=== PATIENT | female | born 1955 | race Caucasian/White ===

== ENCOUNTER 2023-06-05 13:40 | Emergency (ER) | payer BC ==
[2023-06-05 15:10] VITALS: TEMP 98.4
[2023-06-05] MEDS: SODIUM CHLORIDE 0.9% 1,000 ML IV STA (15:24)
--- NOTE | 2023-06-05 15:36 | ED ---
General Adult HPI - General Chief complaint: Extremity Problem,Nontraumatic Stated complaint: Faustino THOMAS, sent from Urgent care Time Seen by Provider: 06/05/23 13:45 Source: patient Mode of arrival: ambulatory Limitations: no limitations - History of Present Illness Initial comments: 67-year-old female presents emergency department reporting pain and redness to her left lower leg. Patient states that she has not felt well over the past week. She has had nausea vomiting and diarrhea. States that she is extremely dehydrated. Today she went to work and had a syncopal episode. She states that a coworker found her on the floor. She states that she was not out for long. Did hit her head as she has a bruise to the right side of her worship. She denies headache. No neck or back pain. No visual changes. She does not take any blood thinners. She called her primary care doctor to talk about it. They recommended that she come into the emergency department and have an ultrasound of her left lower extremity for the redness and swelling. Patient denies any fevers. No chest pain or difficulty breathing. No other alleviating, precip itating modifying factors - Related Data Home Medications Medication Instructions Recorded Confirmed No Known Home Medications 06/05/23 06/05/23 Allergies Allergy/AdvReac Type Severity Reaction Status Date / Time No Known Allergies Allergy Verified 06/05/23 16:28 Review of Systems ROS Statement: Those systems with pertinent positive or pertinent negative responses have been documented in the HPI. ROS Other: All systems not noted in ROS Statement are negative. Past Medical History Past Medical History: No Reported History History of Any Multi-Drug Resistant Organisms: None Reported Past Surgical History: No Surgical Hx Reported Past Psychological History: No Psychological Hx Reported Smoking Status: Never smoker Past Alcohol Use History: None Reported Past Drug Use History: None Reported General Exam Limitations: no limitations General appearance: alert, in no apparent distress Head exam: Present: atraumatic, normocephalic, normal inspection Eye exam: Present: normal appearance, PERRL, EOMI. Absent: scleral icterus, conjunctival injection, periorbital swelling ENT exam: Present: normal exam, mucous membranes moist Neck exam: Present: normal inspection. Absent: tenderness, meningismus, lymphadenopathy Respiratory exam: Present: normal lung sounds bilaterally. Absent: respiratory distress, wheezes, rales, rhonchi, stridor Cardiovascular Exam: Present: regular rate, normal rhythm, normal heart sounds. Absent: systolic murmur, diastolic murmur, rubs, gallop, clicks GI/Abdominal exam: Present: soft, normal bowel sounds. Absent: distended, tenderness, guarding, rebound, rigid Extremities exam: Present: tenderness (Redness, swelling to the left lower extremity. There is central purpura.), normal capillary refill. Absent: pedal edema, joint swelling, calf tenderness Back exam: Present: normal inspection Neurological exam: Present: alert, oriented X3, CN II-XII intact Psychiatric exam: Present: normal affect, normal mood Skin exam: Present: warm, dry, intact, normal color. Absent: rash Course Vital Signs 06/05/23 06/05/23 06/05/23 13:44 13:46 15:46 Temperature 98.4 F Pulse Rate 120 H 80 72 Respiratory 22 20 16 Rate Blood Pressure 119/74 146/72 O2 Sat by Pulse 99 98 95 Oximetry 06/05/23 18:36 Temperature Pulse Rate 93 Respiratory 20 Rate Blood Pressure 116/72 O2 Sat by Pulse 98 Oximetry Medical Decision Making - Medical Decision Making Was pt. sent in by a medical professional or institution (, PA, EMERGENCY ROOM REGISTERED NURSE, urgent care, hospital, or penitentiary...) When possible be specific @ -Patient sent in by primary care for ultrasound Did you speak to anyone other than the patient for history (EMS, parent, family, police, friend...)? What history was obtained from this source @ -No Did you review nursing and triage notes (agree or disagree)? Why? @ -I reviewed and agree with nursing and triage notes Were old charts reviewed (outside hosp., previous admission, EMS record, old EKG, old radiological studies, urgent care reports/EKG's, penitentiary records)? Report findings @ -No old charts were reviewed Differential Diagnosis (chest pain, altered mental status, abdominal pain women, abdominal pain men, vaginal bleeding, weakness, fever, dyspnea, syncope, headache, dizziness, GI bleed, back pain, seizure, CVA, palpatations, mental health, musculoskeletal)? @ -Cellulitis, DVT, vasculitis EKG interpreted by me (3pts min.). @ -Yes and demonstrates sinus tachycardia with a rate of 103. KS interval 174. QRS 103. QTc of 388. No acute ST segment elevations or depressions X-rays interpreted by me (1pt min.). @ -None done CT interpreted by me (1pt min.). @ -None done U/S interpreted by me (1pt. min.). @ -Yes and demonstrates no DVT What testing was considered but not performed or refused? (CT, X-rays, U/S, labs)? Why? @ -None What meds were considered but not given or refused? Why? @ -None Did you discuss the management of the patient with other professionals (professionals i.e. , PA, EMERGENCY ROOM REGISTERED NURSE, lab, RT, psych nurse, social work instructor, executive sous chef, teacher, chairman president and chief executive officer, assistant case manager)? Give summary @ -No Was smoking cessation discussed for >3mins.? @ -No Was critical care preformed (if so, how long)? @ -No Were there social determinants of health that impacted care today? How? (Homelessness, low income, unemployed, alcoholism, drug addiction, transportation, low edu. Level, literacy, decrease access to med. care, half-way, rehab)? @ -No Was there de-escalation of care discussed even if they declined (Discuss DNR or withdrawal of care, Hospice)? DNR status @ -No What co-morbidities impacted this encounter? (DM, HTN, Smoking, COPD, CAD, Cancer, CVA, ARF, Chemo, Hep., AIDS, mental health diagnosis, sleep apnea, morbid obesity)? @ -None Was patient admitted / discharged? Hospital course, mention meds given and route, prescriptions, significant lab abnormalities, going to OR and other pertinent info. @ -Upon arrival patient was seen and evaluated in [place] [address]. Thorough history and physical exam was performed. Ultrasound was performed which demonstrates no DVT. I am concerned for cellulitis therefore initiated the patient on antibiotics. She is to take them as directed. Follow-up with her doctor and return for any new or worsening symptoms. Patient agreeable plan she was discharged in stable condition Undiagnosed new problem with uncertain prognosis? @ -No Drug Therapy requiring intensive monitoring for toxicity (Heparin, Nitro, Insulin, Cardizem)? @ -No Were any procedures done? @ -No Diagnosis/symptom? @ -Acute left lower extremity erythema, acute left lower extremity cellulitis, evaluation for DVT Acute, or Chronic, or Acute on Chronic? @ -Acute Uncomplicated (without systemic symptoms) or Complicated (systemic symptoms)? @ -Complicated Side effects of treatment? @ -No Exacerbation, Progression, or Severe Exacerbation? @ -No Poses a threat to life or bodily function? How? (Chest pain, [place], [place], pneumonia, PE, COPD, DKA, ARF, appy, cholecystitis, CVA, Diverticulitis, Homicidal, Suicidal, threat to staff... and all critical care pts) @ -No - Lab Data Result diagrams: 06/05/23 15:22 06/05/23 15:22 Lab Results 06/05/23 06/05/23 06/05/23 Range/Units 15:22 15: 15: WBC 9.0 (3.8-10.6) k/uL RBC 4.67 (3.80-5.40) m/uL Hgb 14.1 (11.4-16.0) gm/dL Hct 43.8 (34.0-46.0) % MCV 93.7 (80.0-100.0) fL MCH 30.2 (25.0-35.0) pg MCHC 32.3 (31.0-37.0) g/dL RDW 13.0 (11.5-15.5) % Plt Count 179 (150-450) k/uL MPV 10.3 Neutrophils % 74 % Lymphocytes % 14 % Monocytes % 8 % Eosinophils % 1 % Basophils % 0 % Neutrophils # 6.7 (1.3-7.7) k/uL Lymphocytes # 1.3 (1.0-4.8) k/uL Monocytes # 0.7 (0-1.0) k/uL Eosinophils # 0.1 (0-0.7) k/uL Basophils # 0.0 (0-0.2) k/uL Sodium 135 L (137-145) mmol/L Potassium 3.6 (3.5-5.1) mmol/L Chloride 103 (98-107) mmol/L Carbon Dioxide 21 L (22-30) mmol/L Anion Gap 11 mmol/L BUN 18 H (7-17) mg/dL Creatinine 0.77 (0.52-1.04) mg/dL Est GFR (CKD-EPI)AfAm >90 (>60 ml/min/1.73 sqM) Est GFR (CKD-EPI)NonAf 81 (>60 ml/min/1.73 sqM) Glucose 110 H (74-99) mg/dL Calcium 9.2 (8.4-10.2) mg/dL Total Bilirubin 1.1 (0.2-1.3) mg/dL AST 32 (14-36) U/L ALT 30 (4-34) U/L Alkaline Phosphatase 78 (38-126) U/L Troponin I <0.012 (0.000-0.034) ng/mL Total Protein 8.5 H (6.3-8.2) g/dL Albumin 4.2 (3.5-5.0) g/dL Disposition Clinical Impression: Left leg swelling, Syncope Disposition: HOME SELF-CARE Condition: Stable Instructions (If sedation given, give patient instructions): Cellulitis (ED) Additional Instructions: Please take the antibiotics starting tomorrow. Follow-up with your doctor return for any new or worsening symptoms Is patient prescribed a controlled substance at d/c from ED?: No Referrals: None,Stated [Primary Care Provider] - 1-2 days Time of Disposition: 17:06
[2023-06-05 15:38] LABS: Basophils % (A) 0 %; Eosinophils # (A) 0.1 k/uL (0-0.7); Eosinophils % (A) 1 %; HCT 43.8 % (34.0-46.0); HGB 14.1 gm/dL (11.4-16.0); Lymphocytes # (A) 1.3 k/uL (1.0-4.8); Lymphocytes % (A) 14 %; MCH 30.2 pg (25.0-35.0); MCHC 32.3 g/dL (31.0-37.0); MCV 93.7 fL (80.0-100.0); Mean Platelet Volume 10.3; Monocytes # (A) 0.7 k/uL (0-1.0); Monocytes % (A) 8 %; Neutrophils # (A) 6.7 k/uL (1.3-7.7); Neutrophils % (A) 74 %; Platelet Count 179 k/uL (150-450); RBC 4.67 m/uL (3.80-5.40)
[2023-06-05 15:51] LABS: ALT 30 U/L (4-34); AST 32 U/L (14-36); African American GFR (CKD) >90 (>60 ml/min/1.73 sqM); Albumin 4.2 g/dL (3.5-5.0); Alkaline Phosphatase 78 U/L (38-126); Anion Gap 11 mmol/L; Blood Urea Nitrogen 18 mg/dL (7-17); Calcium 9.2 mg/dL (8.4-10.2); Carbon Dioxide 21 mmol/L (22-30); Chloride 103 mmol/L (98-107); Glucose 110 mg/dL (74-99); Non-African American GFR(CKD) 81 (>60 ml/min/1.73 sqM); Potassium 3.6 mmol/L (3.5-5.1); Sodium 135 mmol/L (137-145); Total Bilirubin 1.1 mg/dL (0.2-1.3); Total Protein 8.5 g/dL (6.3-8.2)
--- NOTE | 2023-06-05 16:43 | US ---
EXAMINATION TYPE: US venous doppler duplex LE LT DATE OF EXAM: 06/05/2023 4:15 PM COMPARISON: NONE CLINICAL INDICATION: Female, 67 years old with history of lle swelling; rash on jacinto x 1 day SIDE PERFORMED: Left TECHNIQUE: The lower extremity deep venous system is examined utilizing real time linear array sonog jess with graded compression, doppler sonography and color-flow sonography. VESSELS IMAGED: Common Femoral Vein Deep Femoral Vein Greater Saphenous Vein * Femoral Vein Popliteal Vein Small Saphenous Vein * Proximal Calf Veins (* superficial vessels) The deep venous system of the left lower extremity from the common femoral vein to the proximal calf veins is patent and compressible with augmentable flow. There are normal waveforms. IMPRESSION: No evidence of DVT from the left common femoral vein to the proximal calf veins.
[2023-06-05] MEDS: cefTRIAXone IN SWFI 1,000 MG/10 ML SYRINGE IVP STA (18:36)
[2023-06-05 19:08] VITALS: BP 116/72; PULSE 93; RESP 20
== END 2023-06-05 17:45 | disposition home or self-care (01) ==
LOC: EC 13:40
DX: I82.402 Acute embolism and thrombosis of unspecified deep veins of left lower extremity (principal); R55 Syncope and collapse
CPT/HCPCS: 36415; 80053; 84484; 85025; 93005